=== PATIENT | female | born 1975 | race Caucasian/White ===

== ENCOUNTER 2023-01-31 06:56 | Emergency (ER) | payer OTHER, SELFPAY ==
[2023-01-31] VITALS (7 sets, daily range): BP systolic 106–147; BP diastolic 58–80; PULSE 61–82; RESP 13–16; TEMP 36.7–37; O2SAT 93–95
--- NOTE | ~2023-01-31 | CT_ITS ---
Non-contrast Head CT History: Headache Technique: Axial non-contrast imaging of the brain was performed. Dose reduction technique was used on this scan by utilizing automated exposure control and iterative reconstruction technique. The dose -length product (DLP) was 605.33 mGy-cm. Findings: There is no evidence of intracranial hemorrhage, mass lesion, or acute infarct. Brain par enchyma appears normal. The ventricles and subarachnoid spaces are normal in size. The calvarium ap pears normal. The visualized paranasal sinuses and mastoid air cells are clear. Impression: No significant abnormality seen. Reviewed, dictated and finalized at location . ITALIST PROGRAM DIRECTOR Impression: No significant abnormality seen.
[2023-01-31] MEDS: diphenhydrAMINE HCl INJ 50 MG/ML VIAL 25 MG IV PUSH (08:10)
[2023-01-31] MEDS: KETOROLAC 30 MG/ML VIAL (*BKC) IV PUSH (08:11)
[2023-01-31] MEDS: SODIUM CHLORIDE 0.9% IV 1,000 ML 999 ML IV CONT (08:11)
[2023-01-31] MEDS: METOCLOPRAMIDE HCL INJ 10 MG/2 ML VIAL IV PUSH (08:11)
--- NOTE | 2023-01-31 08:13 | ED.HA ---
HPI - Headache General Chief Complaint: Headache Stated Complaint: ANDERSON Time Seen by Provider: 01/31/23 07:23 History of Present Illness HPI Narrative: Patient is a 47-year-old female who presents ER with headache. Ongoing for 8 days. Pressure and worse in the bitemporal region. Radiates to the top. Worse with bending over and other movements. No trauma. Denies fevers or chills or sweats. She has been taking some Percocet without improvement. She also takes diclofenac. Her clerk rating reported to her that her CRP was elevated and may be caused by inflammation. She has an outpatient MRI order but has not yet been scheduled due to insurance reasons. Reports history of occasional headaches but no history of migraine headache. She has no sinus issues at this time. Related Data Allergies Allergy/AdvReac Type Severity Reaction Status Date / Time No Known Allergies Allergy Verified 01/31/23 07:01 Review of Systems Review of Systems: All systems reviewed & are unremarkable except as noted in HPI and below Constitutional: Constitutional: Denies chills, Reports fatigue and Denies fever(s) Eyes: Eyes: Denies change in vision and Denies photophobia ENT: Reports system reviewed and no additional complaints, except as documented Cardiovascular: Cardiovascular: Reports no additional cardiovascular complaints Respiratory: Respiratory: Reports no additional respiratory complaints Gastrointestinal: Gastrointestinal: Reports no additional gastrointestinal complaints Neurologic: Denies syncope, Reports headache(s), Denies focal weakness and Denies numbness PMFSH Past Medical History Medical History (Updated 01/31/23 @ 09:50 by Matthew Narvaez MD) Behcets syndrome Family History Family History (Updated 10/22/15 @ 23:19 by DOCTOR UNKNOWN) Father Hypertension Family history of elevated blood lipids Family history of diabetes mellitus in first degree relative Sibling Family history of diabetes mellitus in first degree relative Family history of malignant neoplasm of breast in first degree relative, Onset Age: 44 Family history of lupus erythematosus Social History Social History Smoking status: Never smoker Alcohol intake: never Exam Narrative: GENERAL: Well-appearing, well-nourished, and in no acute distress. HEAD: Normocephalic, atraumatic. EYES: PERRLA and EOMI. ENT: Mucous membranes moist. NECK: Supple. CHEST: Clear to auscultation. No respiratory distress. HEART: Regular rate and rhythm. Normal peripheral pulses. EXTREMITIES: Normal range of motion. No edema. NEURO: Alert and oriented x3. PSYCH: Normal mood and affect. Course Course Emergency Course: Headache improved with migraine cocktail. CT negative. Discharge home. Vital Signs Vital signs: Vital Signs Temperature 98.6 F 01/31/23 06:59 Pulse Rate 82 01/31/23 06:59 Respiratory Rate 14 01/31/23 06:59 Blood Pressure 147/80 H 01/31/23 06:59 Pulse Oximetry 95 01/31/23 06:59 Oxygen Delivery Room Air 01/31/23 06:59 Temperature 98.6 F 01/31/23 06:59 Pulse Rate 61 01/31/23 09:16 Respiratory Rate 14 01/31/23 09:16 Blood Pressure 106/58 L 01/31/23 09:16 Pulse Oximetry 93 01/31/23 09:16 Oxygen Delivery Room Air 01/31/23 06:59 MDM - Headache Imaging Data Radiologist's impression: ITS Impressions Head CT 01/31/23 08:01 Impression: No significant abnormality seen. Discharge Plan Discharge Clinical Impression: Generalized headache Patient Disposition: Home, Self-Care Condition: Stable Instructions: Tension Headache (ED) Additional Instructions: Return the ER if you have fever over 100.4 ?F, you cannot keep down food or water, you lose consciousness, you have additional concerns. Follow-up/Referrals: Shilo,Lena Davies MD [Primary Care Provider] - 1 Week
== END 2023-01-31 10:33 | disposition home or self-care (01) ==
PROVIDERS: Emergency Provider Emergency Medicine; PCP Family Medicine
DX: R51.9 Headache, unspecified (principal); M35.2 Behcet's disease
CPT/HCPCS: 70450; 96361; 96374; 96375; 99284; J1200; J1885; J2765; J7030